=== PATIENT | male | born 1970 | race Caucasian/White ===

== ENCOUNTER 2021-01-08 08:01 | Emergency (ER) | payer OTHER ==
[~2021-01-08 08:01] MED LIST changes: -DIAZEPAM 5MG TAB5 MG PO; -NEURONTIN100 MG PO
[2021-01-08 08:33] LABS: BASOPHIL 0.6 % (0-2); EOSINOPHIL 0 % (0-5); HCT 42.6 % (42.0-52.0); HGB 14.3 g/dl (13.2-18.0); LYMPHOCYTE 7.3 % (15-48); MCH 33.2 pg (25.0-31.0); MCHC 33.6 g/dL (32.0-36.0); MCV 98.8 fL (78.0-100.0); MONOCYTE 13.1 % (0-12); MPV 8.9 fL (6.0-9.5); NEUTROPHIL 78.7 % (41-80); NRBC 0; PLT 132 K/uL (150-400); RBC 4.31 M/uL (4.70-6.00); RDW 12.3 % (11.5-14.0); WBC 3.4 K/uL (4.0-10.5)
[2021-01-08 08:35] LABS: BILIRUBIN 1+ mg/dL (NEGATIVE); BLOOD 1+ Ery/uL (NEGATIVE); CLARITY CLEAR (CLEAR); COLOR AMBER (YELLOW); GLUCOSE (U) NORMAL (NORMAL); LEUKOCYTES NEGATIVE Leu/uL (NEGATIVE); NITRITE NEGATIVE (NEGATIVE); PROTEIN 1+ mg/dL (NEGATIVE); SPECIFIC GRAVITY 1.015 (1.001-1.030); pH 8.5 (5.0-9.0)
[2021-01-08 08:39] LABS: AMPHETAMINES NEGATIVE (NEGATIVE); BARBITURATES NEGATIVE (NEGATIVE); ECSTASY (MDMA) NEGATIVE (NEGATIVE); MARIJUANA (THC) POSITIVE (NEGATIVE); METHADONE NEGATIVE (NEGATIVE); OPIATES NEGATIVE (NEGATIVE); OXYCODONE NEGATIVE (NEGATIVE)
[2021-01-08 08:51] LABS: ALBUMIN 3.8 g/dL (3.4-5.0); ALKALINE PHOSHATASE 45 U/L (46-116); ALT 180 U/L (16-63); AST 160 U/L (15-37); BILIRUBIN - TOTAL 1.6 mg/dL (0.2-1.0); BUN 10 mg/dL (7-18); BUN/CREAT RATIO (CALC) 14.5 RATIO; CHLORIDE 104 mmol/L (98-107); CO2 (BICARBONATE) 28 mmol/L (21-32); CREATININE 0.69 mg/dL (0.67-1.17); GLOBULIN (CALCULATION) 3.4 g/dL; GLUCOSE 112 mg/dL (74-106); TOTAL PROTEIN 7.2 g/dL (6.4-8.2)
[2021-01-08 08:56] LABS: BACTERIA TRACE
[2021-04-29] MEDS ORDERED: NEURONTIN100 MG PO (13:13)
[2021-05-31] MEDS ORDERED: DIAZEPAM 5MG TAB5 MG PO (06:59)
== END 2021-01-08 10:25 | disposition home or self-care (01) ==
LOC: FER 08:01
PROVIDERS: Internal Medicine
DX: F10.139 Alcohol abuse with withdrawal, unspecified (principal); G40.89 Other seizures; F14.10 Cocaine abuse, uncomplicated; F12.10 Cannabis abuse, uncomplicated; Z88.5 Allergy status to narcotic agent; Y90.0 Blood alcohol level of less than 20 mg/100 ml
CPT/HCPCS: 36415; 80053; 80305; 81001; 85025; 93005; G0480

== ENCOUNTER → 2021-01-08 | Day surgery (SDC) | payer OTHER ==
[~2021-01-08] MED LIST: AMOXICILLIN500 M2 PO; CARAFATE S500 MG/TSP PO; CARAFATE1 GM PO; DIAZEPAM 5MG TAB5 MG PO; IBU600 MG PO; KEPPRA500 MG PO; MOBIC7.5 MG PO; NEURONTIN100 MG PO; PEPCID AC20 MG PO; RANITIDINE HCL150 M1 PO
== END | disposition home or self-care (01) ==
LOC: FAS 06:27
DX: Z53.8 Procedure and treatment not carried out for other reasons (principal)
CPT/HCPCS: 93005; J2250; J2704; J7120

== ENCOUNTER → 2021-05-31 | Day surgery (SDC) | payer OTHER ==
[~2021-05-31] VITALS: Ht 165.1 cm; Wt 66.7 kg
[~2021-05-31] MED LIST changes: +DIAZEPAM 5MG TAB5 MG PO; +NEURONTIN100 MG PO
== END | disposition home or self-care (01) ==
LOC: FAS 05-10 09:00
DX: Z12.11 Encounter for screening for malignant neoplasm of colon (principal); G40.909 Epilepsy, unspecified, not intractable, without status epilepticus; K21.9 Gastro-esophageal reflux disease without esophagitis; F10.239 Alcohol dependence with withdrawal, unspecified; M19.90 Unspecified osteoarthritis, unspecified site; I10 Essential (primary) hypertension; F41.9 Anxiety disorder, unspecified; Z88.5 Allergy status to narcotic agent; Z79.1 Long term (current) use of non-steroidal anti-inflammatories (NSAID); Z79.899 Other long term (current) drug therapy
CPT/HCPCS: J2250; J2704; J7120